=== PATIENT | female | born 1995 | race Two or more races ===

== ENCOUNTER 2022-08-12 09:53 | Outpatient (CLI) | payer BC ==
[2022-08-12 10:51] LABS: *BILIRUBIN,URIN NEGATIVE (NEGATIVE); *BLOOD, URINE NEGATIVE (NEGATIVE); *CLARITY,URINE CLEAR (CLEAR); *COLOR,URINE YELLOW (YELLOW); *KETONES,URINE NEGATIVE (NEGATIVE); *UROBILINOGEN,URINE 0.2 E.U./dl (NORMAL); LEUKOCYTE ESTERASE ,URINE NEGATIVE (NEGATIVE); NITRITE, URINE NEGATIVE (NEGATIVE); PH,URINE 8.5 (5.0-8.0); UGLUCOSE NEGATIVE (NEGATIVE)
[2022-08-12 11:02] LABS: HEMATOCRIT 38.4 % (31.2-41.9); MEAN CORPUSCULAR HEMOGLOBIN 30.5 uug (24.7-32.8); PLATELET COUNT (AUTO) 354 K/uL (179-408)
[2022-08-12 11:56] LABS: THYROID STIMULATING HORMONE 2.505 mIU/mL (0.358-3.740)
[2022-08-12 12:21] LABS: ALANINE AMINOTRANSFERASE 23 U/L (14-59); ALKALINE PHOSPHATASE 68 U/L (50-136); ASPARTATE AMINOTRANSFERASE 15 U/L (15-37); BILIRUBIN,TOTAL 0.5 mg/dL (0.2-1.0); CARBON DIOXIDE 28 mmol/L (21-32); CHLORIDE 102 mmol/L (98-107); CHOLESTEROL 173 mg/dL (<200); CREATININE 0.7 mg/dL (0.6-1.3); FERRITIN 25 ng/mL (8-252); GLUCOSE 87 mg/dL (74-106); HDL CHOLESTEROL 69 mg/dL (40-60); IRON, SERUM 130 ug/dL (50-175); MAGNESIUM 2.2 mg/dL (1.8-2.4); POTASSIUM 3.7 mmol/L (3.5-5.1); TOTAL PROTEIN, SERUM 7.7 g/dL (6.4-8.2); TRIGLYCERIDES 73 MG/DL (30-150); UREA NITROGEN, BLOOD 9 mg/dL (7-18)
[2022-08-13 09:07] LABS: THYROID PEROXIDASE (TPO) AB 129 IU/mL (0-34)
== END 2022-08-12 23:59 | disposition home or self-care (01) ==
LOC: LAB 09:53
PROVIDERS: ATTEND Internal Medicine
DX: Z01.83 Encounter for blood typing (principal); R53.83 Other fatigue; M00.00 Staphylococcal arthritis, unspecified joint
CPT/HCPCS: 36415; 82306; 83735; 83921; 84443; 84480; 84550; 85025; 85651; 86140